=== PATIENT | male | born 1985 | race Two or more races ===

== ENCOUNTER 2017-01-25 06:52 | Emergency (ER) | payer SELFPAY ==
[~2017-01-25] VITALS: Ht 165.1 cm; Wt 88.5 kg
[2017-01-25 07:01] VITALS: BP 147/100
[2017-01-25] MEDS ORDERED: DIPHTH,PERTUSS(ACELL),TET TOX 0.5 ML DISP.SYRIN. VAX IM ONE (07:15)
[2017-01-25] MEDS ORDERED: LIDOCAINE 1% / SOD BICARB 8.4% 20 ML VIAL. IJ ONE (07:15)
[2017-01-25] MEDS ORDERED: TRAM-48 PO (07:37)
[2017-01-25] MEDS ORDERED: SULF1TAB24 PO (07:37)
--- NOTE | 2017-01-25 07:37 | PHYS DOC ---
Past Medical History Past Medical History: No Pertinent History Past Surgical History: No Surgical History Additional Information: 1-2 CIGS/DAY Alcohol Use: None Additional Information: 1 BEER A DAY Drug Use: None Adult General Chief Complaint Chief Complaint: ABSCESS HPI HPI Patient is a 31 year old Wolof-speaking male who presents with a cyst on the left buttock that he has had for the last 6 months but started draining today. Patient denies any fever. Review of Systems Review of Systems Constitutional: See history of present illness Musculoskeletal: Denies back pain or joint pain [] Integument: cyst on the left buttock Neurologic: Denies headache, focal weakness or sensory changes [] Current Medications Current Medications Current Medications Medications (Trade) Dose Ordered Sig/Colleen Start Time Stop Time Status Last Admin Dose Admin Diphtheria/ Tetanus/Acell Pertussis (Boostrix) 0.5 ml ONCE ONCE 01/25/17 07:15 10 07:17 DC Lidocaine/Sodium Bicarbonate (Buffered Lidocaine 1%) 20 ml 1X ONCE 01/25/17 07:15 01/25/17 07:17 DC 01/25/17 07:19 20 ML Allergies Allergies Allergies Coded Allergies Type Severity Reaction Last Updated Verified No Known Drug Allergies 01/25/17 No Physical Exam Physical Exam Constitutional: Well developed, well nourished, no acute distress, non-toxic appearance. [] Skin: Warm, left buttock with an indurated area approximately 1 x 1 cm consistent with assistance but with yellow fluctuant center. The area is tender to touch. Back: No tenderness, no CVA tenderness. [] Extremities: No tenderness, no cyanosis, no clubbing, ROM intact, no edema. [] Neurologic: Alert and oriented X 3, normal motor function, normal sensory function, no focal deficits noted. [] Psychologic: Affect normal, judgement normal, mood normal. [] Current Patient Data Vital Signs Vital Signs Date Time Temp Pulse Resp B/P (MAP) Pulse Ox O2 Delivery O2 Flow Rate FiO2 01/25/17 07:01 98.1 75 18 98 Room Air 98.1 EKG EKG [] Radiology/Procedures Radiology/Procedures Indication: Infected cyst on the left buttock Procedure: The patient was positioned appropriately. Local anesthesia was 1% buffered lidocaine. An incision was then made over the apex of the lesion and mild amount of yellow bloody material was expressed. The drainage cavity was irrigated and covered with sterile gauze. The patients tetanus status updated as needed. The patient tolerated the procedure well. Complications: none.[] Course & Med Decision Making Course & Med Decision Making Pertinent Labs and Imaging studies reviewed. (See chart for details) Patient has an infected cyst on the left buttock that was drained by me as noted in procedures. I recommended he follows up with a soaking pits supervisor in the next 7 days. Recommended keeping the area clean and dry. Provided him return precautions. Discharged in stable condition. Dragon Disclaimer Dragon Disclaimer This electronic medical record was generated, in whole or in part, using a voice recognition dictation system. Departure Departure Impression: Primary Impression: Abscess of buttock, right Additional Impression: Cyst of buttocks Disposition: 01 HOME, SELF-CARE Condition: STABLE Referrals: NO PCP (PCP) REJI BARONE MD follow up in one week with a soaking pits supervisor Patient Instructions: Abscess, Cyst Removal Additional Instructions: You have an infected cyst that was drained in the Ed. Please keep the area clean and dry. Soak the area in warm water with epson salt twice a day. complete your antibiotics. Scripts Sulfamethoxazole/Trimethoprim (BACTRIM DS TABLET) 1 Each Tablet 1 TAB PO BID, #20 TAB Prov: ETELVINA TY APRN 01/25/17 Tramadol Hcl (ULTRAM) 50 Mg Tablet 1 TAB PO Q6HRS, #30 TAB Prov: ETELVINA TY APRN 01/25/17 Problem Qualifiers ETELVINA TY APRN Jan 25, 2017 07:37
== END 2017-01-25 07:42 | disposition home or self-care (01) ==
LOC: ER 06:52
DX: L02.31 Cutaneous abscess of buttock (principal); F17.210 Nicotine dependence, cigarettes, uncomplicated
CPT/HCPCS: 10060; 99283-25